=== PATIENT | female | born 1985 | race Two or more races ===

== ENCOUNTER 2016-04-15 20:18 | Emergency (ER) | payer OTHER, MEDICAID ==
[~2016-04-15] VITALS: Ht 167.6 cm; Wt 81.6 kg
[~2016-04-15 20:18] MED LIST: BACTRIM-DS1 EA ORAL; IBUPROFEN600 MG PO; NKM; NORCO 10-325 T1 EACH PO; SOMA350 MG PO; TRAMADOL HCL50 MG ORAL
[2016-04-15] MEDS ORDERED: RANITIDINE HCL150 MG ORAL (20:59)
[2016-04-15] MEDS ORDERED: HYDROXYZINE HCL25 M1 PO (20:59)
[2016-04-15] MEDS ORDERED: PREDNISONE20 MG ORAL (20:59)
[2016-04-15 21:19] VITALS: BP 116/75
[2016-04-15 21:21] VITALS: BP 116/75
--- NOTE | 2016-04-17 07:01 | Emergency Room Report ---
History of Present Illness General Chief Complaint: Skin Rash/Abscess Source: Patient Present Illness HPI 30-year-old female presents ED complaining of rash x3 days. States that she noticed a rash a few days ago which is getting worse. States it is very itchy. No pain. Not improving with Benadryl and hydrocortisone [id number] cream. Notes rash to arms and legs. Denies any known food or drug allergies. Denies any new soaps, creams, detergents, clothing. Denies sick contacts or recent travel. No aggravating relieving factors. Denies any other associated symptoms Allergies: Coded Allergies: No Known Allergies (Verified Allergy, Unknown, 02/07/10) Patient History Past Medical History: none Past Surgical History: none Pertinent Family History: none Social History: Denies: alcohol use, drug use, smoking Last Menstrual Period: Apr 09, 2016 Now: No Immunizations: UTD Reviewed Nursing Documentation: PMH: Agreed, PSxH: Agreed Nursing Documentation-PMH Past Medical History: No Stated History Review of Systems All Other Systems: negative except mentioned in HPI Physical Exam Vital Signs Date Time Temp Pulse Resp B/P Pulse Ox O2 Delivery O2 Flow Rate FiO2 04/15/16 20:32 98.2 93 19 127/70 98 Room Air Sp02 EP Interpretation: reviewed, normal General Appearance: no apparent distress, alert, GCS 15, non-toxic Head: normocephalic Eyes: bilateral eye PERRL, bilateral eye normal inspection ENT: normal ENT inspection Neck: full range of motion Respiratory: normal inspection Cardiovascular #1: normal inspection Gastrointestinal: normal inspection Rectal: deferred Genitourinary: no CVA tenderness Musculoskeletal: normal inspection Neurologic: alert, oriented x3, responsive, motor strength/tone normal, sensory intact, speech normal Psychiatric: normal inspection Skin: rash - urticaria Lymphatic: normal inspection Medical Decision Making Diagnostic Impression: Primary Impression: Urticaria ER Course Hospital Course 30-year-old female presents to ED with rash to arms and legs Differential diagnoses include: Cellulitis, dermatitis, insect bite, abscess Clinical course Patient placed on stretcher. After initial history, physical exam reveals a young female in no acute distress. On exam there evidence of raised erythematous patches on the arms and legs. Blanching. Consistent with urticaria/hives. Patient cannot document a definitive exposure. however we will treat at this time. Will prescribe antihistamines and steroids. Encourage patient to followup with dermatology if symptoms do not resolve Diagnosis - urticaria stable and discharged to home with prescription for prednisone, hydroxyzine, Zantac. Instructed to followup with PMD. Instructed return to ED if symptoms recur or worsen Last Vital Signs Date Time Temp Pulse Resp B/P Pulse Ox O2 Delivery O2 Flow Rate FiO2 04/15/16 21:21 98.2 82 19 116/75 98 Room Air Status: improved Disposition: HOME, SELF-CARE Condition: Stable Scripts Ranitidine Hcl* (ZANTAC*) 150 Mg Tablet 150 MG ORAL TWICE A DAY, #30 TAB Prov: MUNA HEWITT M.D. 04/15/16 Prednisone* (PREDNISONE*) 20 Mg Tablet 60 MG ORAL DAILY for 5 Days, #15 TAB Prov: MUNA HEWITT M.D. 04/15/16 Hydroxyzine Hcl (HYDROXYZINE HCL) 25 Mg Tablet 25 MG PO TID, #30 TAB Prov: MUNA HEWITT M.D. 04/15/16 Referrals: [facility] (PCP) Patient Instructions: Gary [id number] MUNA HEWITT M.D. Apr 17, 2016 07:01
== END 2016-04-15 21:22 | disposition home or self-care (01) ==
LOC: EMR 20:56
DX: L50.9 Urticaria, unspecified (principal)
CPT/HCPCS: 99284